=== PATIENT | male | born 1995 | race African-American/Black ===

== ENCOUNTER 2021-12-14 19:06 | Emergency (ER) | payer OTHER, SELFPAY ==
[2021-12-14 19:11] VITALS: BP 137/73; PULSE 81; RESP 18; TEMP 36.7; O2SAT 100; BMI 23.1
--- NOTE | 2021-12-14 19:16 | DI.RAD.S_ITS ---
PROCEDURE: XR FINGER LT MIN 2V INDICATIONS: laceration left thumb TECHNIQUE: AP hand, 2 views of the left hand 1st digit acquired. COMPARISON: None. FINDINGS: Bones: Cortical irregularity is present of the volar aspect of the 1st digit distal phalanx base. This is suspicious for an acute fracture, however a definite fracture fragment is not visualized. Soft tissues: Soft tissue defect at the volar aspect of the thumb near the IP joint. IMPRESSION: Findings suspicious for an acute fracture of the volar base of the 1st digit distal phalanx, however a definite displaced fracture fragment is not visualized. Dictated by: Jaziel Bowen M.D. on 12/14/2021 at 20:07 Approved by: Jaziel Bowen M.D. on 12/14/2021 at 20:11
--- NOTE | 2021-12-14 19:45 | ED_ITS ---
HPI - Wound/Laceration General Chief Complaint: Wound/Laceration Stated Complaint: LEFT HAND THUMB CUT BY SAW Time Seen by Provider: 12/14/21 19:29 Source: patient Mode of arrival: Ambulatory Limitations: no limitations History of Present Illness HPI narrative: 18-year-old otherwise healthy right-hand dominant male who is here for evaluation of a table saw injury to his left thumb. He cut it on a table saw just prior to arrival. Covered with a bandage. Last shot greater than 7 years ago. Bandage placed in triage. Reports no other injury from the event. Related Data Previous Rx's Medication Instructions Recorded cephalexin 500 mg capsule 500 mg PO QID 7 days #28 caps 12/14/21 hydrocodone 5 mg-acetaminophen 325 1 tab PO Q4-6H PRN pain #14 tabs 12/14/21 mg tablet Allergies Allergy/AdvReac Type Severity Reaction Status Date / Time No Known Drug Allergies Allergy Verified 12/14/21 19:31 Review of Systems Constitutional Constitutional: Reports system reviewed and no additional complaints, except as documented Musculoskeletal Musculoskeletal: Reports system reviewed and no additional complaints, except as documented and Reports as per HPI Integumentary/Breasts Skin/Breast: Reports system reviewed and no additional complaints, except as documented and Reports as per HPI Hematologic/Lymphatic On Anticoagulants: No Patient History Medical History Healthy adult Social History Smoking Status: Never smoker Smoking Status: Never smoker alcohol intake frequency: 0-2 drinks per day Alcohol type: beer Substance Use Type: does not use Exam Initial Vital Signs Initial Vital Signs: Vital Signs Temperature 98.1 F 12/14/21 19:11 Pulse Rate 81 12/14/21 19:11 Respiratory Rate 18 12/14/21 19:11 Blood Pressure 137/73 12/14/21 19:11 Pulse Oximetry 100 12/14/21 19:11 Oxygen Delivery Method 12/14/21 19:11 Resp Effort & Inspection: normal respiratory effort Cardio Pulses: radial pulses present on the left Skin Other: Capillary refill approximately 3 seconds distal left thumb. He is an extensive laceration involving the volar aspect over the IP joint of his left thumb. Neuro Other: Sensation is intact to the distal aspect of his left thumb however he does report that it is less than his other fingers. Extrem Other: Obvious deformity of the left thumb and secondary to the skin defect he does have very easily dislocated IP joint. Patient thumb is held in extension. He is unable to flex his thumb past neutral. Procedures Laceration Repair Laceration 1: Site: other (Thumb) Side (If applicable): left Size (cm): 5 Description: flap and irregular Depth: involves muscle layer and involves tendon Local Anesthetic: lidocaine 1% and with bicarb Amount of anesthesia used (mL): 10 Pre-repair: wound explored and irrigated extensively Skin layer closed with: nylon Skin layer suture size: 3-0 Number of sutures: 4 Technique: simple, interrupted Nerve Block Nerve Block 1: Time out performed: Yes Local Anesthetic: lidocaine 1% and with bicarb Amount of anesthesia used (mL): 10 Side: left Nerve Blocks: digital Procedure Successful: Yes Patient Tolerated Procedure: Well and No complications Orthopedic Splinting/Casting Injury #1: Side: left Upper Extremity Injury Location: finger Upper Extremity Immobilizer: thumb spica Post splinting neuro exam: no change Post splinting vascular exam: no change Placed by: Provider Course Orders Ordered: Discontinued Medications Hydrocodone Bitart/Acetaminophen (Hydrocodone/Acet 5/325 Prepack) 1 bottle MISC SEEINSTR ONE Stop: 12/14/21 23:02 Last Admin: 12/14/21 23:18 Dose: 1 bottle Documented By: CHRISSY Cefazolin Sodium/Dextrose (Cefazolin 2 Gm/20 Ml Syringe) 2 gm IV NOW ONE Stop: 12/14/21 19:45 Last Admin: 12/14/21 20:07 Dose: 2 gm Documented By: FRANK Diphtheria/Tetanus/Acell Pertussis (Diph,Pertuss(Acell),Tet Vac/Pf 0.5 Ml Syringe) 0.5 ml IM .ONCE ONE Stop: 12/14/21 19:32 Last Admin: 12/14/21 19:49 Dose: Not Given Documented By: MIGUELITO Diphtheria/Tetanus/Acell Pertussis (Tet,Diph,Pertuss(Acell),Vac/Pf 0.5 Ml Syringe) 0.5 ml IM .ONCE ONE Stop: 12/14/21 19:51 Last Admin: 12/14/21 20:21 Dose: 0.5 ml Documented By: FRANK Lidocaine HCl (Lidocaine 1% (Pf)) 4 ml INJ NOW ONE Stop: 12/14/21 20:56 Last Admin: 12/14/21 23:18 Dose: 4 ml Documented By: NR Vital Signs Vital signs: Vital Signs - 8 hr 12/14/21 19:11 Temperature 98.1 F Pulse Rate 81 Respiratory Rate 18 Blood Pressure 137/73 Pulse Oximetry 100 Oxygen Delivery Method Room Air MDM - Wound/Laceration Lab Data Attestation: I reviewed the patient's lab results. Result diagrams: 12/14/21 19:55 12/14/21 19:55 Labs: Lab Results 12/14/21 12/14/21 12/14/21 Range/Units 19:55 19:55 20:25 WBC 5.6 (4.5-11.0) X10^3/uL RBC 5.34 (4.5-5.9) X10^6/uL Hgb 14.8 (13.5-17.5) g/dL Hct 43.6 (41-53) % MCV 81.7 (80-100) fL MCH 27.7 (26-34) PG MCHC 34.0 (30-36) % RDW 15.2 H (11.6-14.8) % Plt Count 210 (150-400) X10^3/uL Neut % (Auto) 53.7 (50-75) % Lymph % (Auto) 32.6 (25-40) % [place] % (Auto) 9.6 (3-14) % Eos % (Auto) 3.6 (2-4) % Baso % (Auto) 0.5 (0-2) % Neut # (Auto) 3000 (2108-1321) /uL Lymph # (Auto) 1800 (8202-1510) /uL [place] # (Auto) 500 (0-900) /uL Eos # (Auto) 200 (0-450) /uL Baso # (Auto) 0 (0-100) /uL Sodium 138 (137-145) mmol/L Potassium 3.4 (3.4-5.1) mmol/L Chloride 103 (98-107) mmol/L Carbon Dioxide 29 (22-32) mmol/L BUN 14 (9-20) mg/dL Creatinine 0.98 (0.66-1.25) mg/dL Estimated GFR > 60 (>60) mL/min BUN/Creatinine Ratio 14.3 (6-22) Glucose 155 H (70-100) mg/dL Calcium 8.6 (8.4-10.2) mg/dL SARS-CoV-2 (PCR) Negative (Negative) Imaging Data Extremity x-ray #1: Radiologist's Impression: [address] [address] XRay Report Signed Patient: Miguelangel Evans MR#: [id number] : 1995 Acct:[id number] Age/Sex: 26 / M Date of Service: 12/14/21 Loc: ED Accession Number: [id number] ?? Procedure: XR finger LT min 2V Ordering Provider: Elena Sotomayor PROCEDURE:? XR FINGER LT MIN 2V ? INDICATIONS:? laceration left thumb ? TECHNIQUE:? AP hand, 2 views of the left hand 1st digit acquired.? ? COMPARISON:? None. ? FINDINGS:? ? Bones:? Cortical irregularity is present of the volar aspect of the 1st digit distal phalanx base.? This is suspicious for an acute fracture, however a definite fracture fragment is not visualized. ? Soft tissues:? Soft tissue defect at the volar aspect of the thumb near the IP joint. ? IMPRESSION:? Findings suspicious for an acute fracture of the volar base of the 1st digit distal phalanx, however a definite displaced fracture fragment is not visualized. ? ? Dictated by: Jaziel Bowen M.D. on 12/14/2021 at 20:07 ? ? Approved by: Jaziel Bowen M.D. on 12/14/2021 at 20:11?? [facility] Narrative Medical decision making narrative: Tetanus was updated. He was given antibiotics. X-ray obtained. Patient obviously has extensive injury to the flexor tendons of his left thumb. I did discuss the case with Dr. weaver with orthopedic surgery who recommended that [facility] hand surgery be consulted. I discussed the case and sent pictures to the [facility] hand surgeons. They asked us to place a pulse ox over the thumb and it did read 98%. He does have some sensation and does have capillary refill. Because of this they stated that he does not need emergent evaluation by them. Recommended that we close the wound loosely which I did as described above. He was placed in a thumb spica splint per their recommendation after bandaging the wound. Will send home with antibiotics and pain medication. Contact information for the patient was given to the transfer center and the orthopedic hand clinic will contact him however the patient was also given their phone number for follow-up in the next couple days. Patient was given return precautions and follow-up instructions. He expressed understanding and agreement. Discharge Plan Departure Patient Disposition: Home Clinical Impression: Laceration Activity Restrictions/Additional Instructions: You should be receiving a call from the [facility] sometime within the next 24 hours. If you have not heard from them you can contact their office at [phone]. Expect to see them in the clinic in the next 1-2 days and most likely surgery in the next week. A prescription for pain medications and antibiotics was transmitted to [facility]. Please take them as directed. Keep the splint on and keep it clean and keep it dry. Treat it like a cast. Return to the emergency department for any new or worsening symptoms. Prescriptions: New cephalexin 500 mg capsule 500 mg PO QID 7 Days Qty: 28 0RF hydrocodone-acetaminophen 5-325 mg tablet 1 tab PO Q4-6H PRN (Reason: pain) Qty: 14 0RF Visit Report Forms: Patient Portal/API
[2021-12-14] MEDS: CEFAZOLIN 2 GM/20 ML SYRINGE IV (20:07)
[2021-12-14 20:09] LABS: Add Manual Diff / Slide Review NO; Basophils Absolute Auto 0 /uL (0-100); Basophils Percent Auto 0.5 % (0-2); Eosinophils Absolute Auto 200 /uL (0-450); Eosinophils Percent Auto 3.6 % (2-4); Hematocrit 43.6 % (41-53); Hemoglobin 14.8 g/dL (13.5-17.5); Lymphocytes Absolute Auto 1800 /uL (1100-4500); Lymphocytes Percent Auto 32.6 % (25-40); Mean Corpuscular Hemoglobin 27.7 PG (26-34); Mean Corpuscular Volume 81.7 fL (80-100); Monocytes Absolute Auto 500 /uL (0-900); Monocytes Percent Auto 9.6 % (3-14); Neutrophils Absolute Auto 3000 /uL (1500-7000); Neutrophils Percent Auto 53.7 % (50-75); Platelet Count 210 X10^3/uL (150-400); Red Blood Cell Count 5.34 X10^6/uL (4.5-5.9); Red Cell Distribution Width 15.2 % (11.6-14.8); White Blood Cell Count 5.6 X10^3/uL (4.5-11.0)
[2021-12-14 20:21] LABS: BUN Creatinine Ratio 14.3 (6-22); Blood Urea Nitrogen 14 mg/dL (9-20); Calcium 8.6 mg/dL (8.4-10.2); Carbon Dioxide 29 mmol/L (22-32); Chloride 103 mmol/L (98-107); Estimated Glomerular Filt Rate > 60 mL/min (>60); Glucose 155 mg/dL (70-100); HEMOLYSIS 16 (0-50); Potassium 3.4 mmol/L (3.4-5.1); Sodium 138 mmol/L (137-145)
[2021-12-14] MEDS: TET,DIPH,PERTUSS(ACELL),VAC/PF 0.5 ML SYRINGE IM (20:21)
[2021-12-14 20:52] LABS: COVID19 -Nasal RAPID Negative (Negative)
--- NOTE | 2021-12-14 22:50 | PC.NURSE ---
Dr mancuso used buffered lidocaine to numb thumb. unable to order and scan medication.
[2021-12-14] MEDS: LIDOCAINE 1% (PF) 4 ML INJ (23:18)
[2021-12-14] MEDS: HYDROCODONE/ACET 5/325 PREPACK 1 BOTTLE MISC (23:18)
== END 2021-12-14 23:21 | disposition home or self-care (01) ==
PROVIDERS: Emergency Provider Emergency Medicine
DX: S61.012A Laceration without foreign body of left thumb without damage to nail, initial encounter (principal); W27.0XXA Contact with workbench tool, initial encounter
CPT/HCPCS: 12002; 64450; 73140; 80048; 85025; 87635; 90471; 96374; 99284; C9803; 90715; J0690